=== PATIENT | female | born 2000 | race Caucasian/White ===

== ENCOUNTER 2020-02-01 09:57 | Emergency (ER) | payer MEDICAID ==
[~2020-02-01] VITALS: Ht 162.6 cm; Wt 77.1 kg
[~2020-02-01 09:57] MED LIST: DIPHENHIST50 MG PO; EPIPEN 2-P0.3 MG/0.3 IM; HYDROXYZINE HCL25 M1 PO; LATUDA20 MG PO; LEVOTHYROXIN0.025 MG PO; PREDNISONE50 MG PO
[2020-02-01 10:22] LABS: URINE BILIRUBIN NEGATIVE (Negative); URINE BLOOD NEGATIVE (Negative); URINE CLARITY CLEAR; URINE COLOR YELLOW; URINE GLUCOSE-RANDOM NEGATIVE (Negative); URINE KETONES NEGATIVE (Negative); URINE LEUKOCYTES-REFLEX 1+ (Negative); URINE NITRITE-REFLEX NEGATIVE (Negative); URINE PROTEIN NEGATIVE (Negative); URINE SPECIFIC GRAVITY <= 1.005 (1.005-1.030); URINE UROBILINOGEN 0.2 E.U./dl (0.2-1.0)
[2020-02-01 10:30] LABS: BACTERIA-REFLEX 1-9 Few /HPF (None Seen); CASTS None Seen /LPF (None Seen); MUCUS 0-3 Light strn/LPF (None Seen); SQUAMOUS 4-10 Moderate /LPF (0-3); URINE RBC 0-2 Rare /HPF (0-2); URINE WBC-REFLEX 0-5 Rare /HPF (0-5)
[2020-02-01] MEDS ORDERED: AZITHROMYCIN 2250 MG PO (10:30)
[2020-02-01] MEDS ORDERED: SUPRAX400 M1 PO (10:30)
[2020-02-01 10:31] LABS: CRYSTALS None Seen /LPF (None Seen)
[2020-02-01] MEDS ORDERED: DIFLUCAN150 MG PO (10:46)
[2020-02-01] MEDS ORDERED: FLAGYL500 M1 PO (10:46)
[2020-02-01 10:50] VITALS: BP 124/73
== END 2020-02-01 10:50 | disposition home or self-care (01) ==
LOC: M.ERS 09:57
PROVIDERS: Family Medicine
DX: R10.2 Pelvic and perineal pain (principal); Z20.2 Contact with and (suspected) exposure to infections with a predominantly sexual mode of transmission; Z91.010 Allergy to peanuts

== ENCOUNTER 2020-06-11 09:05 | Emergency (ER) | payer MEDICAID ==
[~2020-06-11] VITALS: Ht 157.5 cm; Wt 95.3 kg
[~2020-06-11 09:05] MED LIST changes: +AZITHROMYCIN 2250 MG PO; +DIFLUCAN150 MG PO; +FLAGYL500 M1 PO; +SUPRAX400 M1 PO
[2020-06-11 09:32] LABS: URINE BLOOD NEGATIVE (Negative); URINE CLARITY CLEAR; URINE COLOR YELLOW; URINE GLUCOSE-RANDOM NEGATIVE (Negative); URINE KETONES NEGATIVE (Negative); URINE LEUKOCYTES-REFLEX NEGATIVE (Negative); URINE NITRITE-REFLEX NEGATIVE (Negative); URINE PROTEIN NEGATIVE (Negative); URINE SPECIFIC GRAVITY >= 1.030 (1.005-1.030); URINE UROBILINOGEN 0.2 E.U./dl (0.2-1.0)
[2020-06-11 09:35] LABS: ICTOTEST (BILI CONFIRMATORY) Negative (Negative); URINE BILIRUBIN 2+ (Negative)
[2020-06-11] MEDS ORDERED: PYRIDIUM200 MG PO (10:08)
[2020-06-11] MEDS ORDERED: BACTRIM DS TAB1 EAC1 PO (10:08)
[2020-06-11 10:22] VITALS: BP 108/70
== END 2020-06-11 10:24 | disposition home or self-care (01) ==
LOC: M.ERS 09:05
PROVIDERS: Emergency Medicine Emergency Medical Services
DX: R10.84 Generalized abdominal pain (principal); R30.0 Dysuria; M54.5 Low back pain

== ENCOUNTER 2020-06-27 03:08 | Emergency (ER) | payer MEDICAID ==
[~2020-06-27] VITALS: Ht 157.5 cm; Wt 95.3 kg
[~2020-06-27 03:08] MED LIST changes: +BACTRIM DS TAB1 EAC1 PO; +PYRIDIUM200 MG PO
[2020-06-27 03:38] LABS: ABSOLUTE BASOPHILS 0.1 thou/uL (0.0-0.2); ABSOLUTE EOSINOPHILS 0.1 thou/uL (0.0-0.7); ABSOLUTE LYMPHOCYTES 2.7 thou/uL (0.8-5.3); ABSOLUTE MONOCYTES 0.7 thou/uL (0.0-1.2); ABSOLUTE NEUTROPHILS 3.4 thou/uL (1.6-8.1); BASOPHILS 0.8 %; EOSINOPHILS 2.1 %; HEMATOCRIT 37.3 % (37.0-47.0); HEMOGLOBIN 12.8 gm/dL (12.0-15.0); LYMPHOCYTES 38.8 %; MCH 29.8 pg (26.0-34.0); MCHC 34.2 g/dL (28.0-37.0); MCV 86.9 fL (80.0-100.0); MONOCYTES 9.7 %; MPV 7.6 fl. (7.2-11.1); NUCLEATED RBCS 0 /100WBC; PLATELET COUNT* 249 thou/uL (150-400); POLYS 48.6 %; RBC 4.29 mil/uL (4.20-5.00); RDW-CV 13.7 % (10.5-14.5); WBC 6.9 thou/uL (4.0-11.0)
[2020-06-27 03:44] LABS: URINE BILIRUBIN NEGATIVE (Negative); URINE BLOOD TRACE (Negative); URINE CLARITY CLEAR; URINE COLOR YELLOW; URINE GLUCOSE-RANDOM NEGATIVE (Negative); URINE KETONES NEGATIVE (Negative); URINE LEUKOCYTES-REFLEX NEGATIVE (Negative); URINE NITRITE-REFLEX NEGATIVE (Negative); URINE PROTEIN NEGATIVE (Negative); URINE SPECIFIC GRAVITY >= 1.030 (1.005-1.030); URINE UROBILINOGEN 0.2 E.U./dl (0.2-1.0)
[2020-06-27 03:47] LABS: CALCIUM 8.7 mg/dL (8.5-10.1); CREATININE 0.9 mg/dL (0.6-1.3)
[2020-06-27 03:52] LABS: ALBUMIN 3.8 g/dL (3.4-5.0); TOTAL BILIRUBIN 0.2 mg/dL (<0.1-1.0); TOTAL PROTEIN 6.8 g/dL (6.4-8.2)
[2020-06-27 04:28] VITALS: BP 104/54
== END 2020-06-27 04:29 | disposition home or self-care (01) ==
LOC: M.ERS 03:08
PROVIDERS: Family Medicine
DX: K59.00 Constipation, unspecified (principal); R10.84 Generalized abdominal pain; Z91.010 Allergy to peanuts

== ENCOUNTER 2020-09-14 09:44 | Emergency (ER) | payer MEDICAID ==
[~2020-09-14] VITALS: Ht 157.5 cm; Wt 95.3 kg
[2020-09-14 10:10] LABS: URINE BILIRUBIN NEGATIVE (Negative); URINE BLOOD NEGATIVE (Negative); URINE CLARITY CLEAR; URINE COLOR YELLOW; URINE GLUCOSE-RANDOM NEGATIVE (Negative); URINE KETONES NEGATIVE (Negative); URINE LEUKOCYTES-REFLEX NEGATIVE (Negative); URINE NITRITE-REFLEX NEGATIVE (Negative); URINE PROTEIN NEGATIVE (Negative); URINE UROBILINOGEN 0.2 E.U./dl (0.2-1.0)
[2020-09-14 10:18] LABS: AMP/METHAMP Negative (Negative); BARBITURATES Negative (Negative); BENZODIAZEPINES Negative (Negative); COCAINE Negative (Negative); METHADONE Negative (Negative); OPIATES Negative (Negative); PCP Negative (Negative); THC POSITIVE (Negative)
[2020-09-14] MEDS ORDERED: FLAGYL500 M1 PO (11:12)
[2020-09-14 11:20] VITALS: BP 126/72
== END 2020-09-14 11:20 | disposition home or self-care (01) ==
LOC: M.ERS 09:44
PROVIDERS: Personal Emergency Response Attendant
DX: N76.0 Acute vaginitis (principal); B96.89 Other specified bacterial agents as the cause of diseases classified elsewhere; Z91.010 Allergy to peanuts; Z79.899 Other long term (current) drug therapy

== ENCOUNTER 2021-01-18 10:55 | Emergency (ER) | payer MEDICAID ==
[~2021-01-18] VITALS: Ht 157.5 cm; Wt 90.7 kg
[2021-01-18 11:31] LABS: URINE BILIRUBIN NEGATIVE (Negative); URINE BLOOD NEGATIVE (Negative); URINE CLARITY CLEAR; URINE COLOR YELLOW; URINE GLUCOSE-RANDOM NEGATIVE (Negative); URINE KETONES NEGATIVE (Negative); URINE LEUKOCYTES-REFLEX NEGATIVE (Negative); URINE NITRITE-REFLEX NEGATIVE (Negative); URINE PROTEIN NEGATIVE (Negative); URINE SPECIFIC GRAVITY 1.015 (1.005-1.030); URINE UROBILINOGEN 0.2 E.U./dl (0.2-1.0)
[2021-01-18] MEDS ORDERED: DOXYCYCLINE 10100 MG PO (11:48)
[2021-01-18] MEDS ORDERED: FLAGYL500 M1 PO (12:03)
[2021-01-18 12:12] VITALS: BP 113/69
== END 2021-01-18 12:13 | disposition home or self-care (01) ==
LOC: M.ERS 10:55
PROVIDERS: Physician Assistant
DX: N76.0 Acute vaginitis (principal); B96.89 Other specified bacterial agents as the cause of diseases classified elsewhere; Z86.19 Personal history of other infectious and parasitic diseases; Z91.010 Allergy to peanuts; Z91.018 Allergy to other foods

== ENCOUNTER 2021-03-27 21:58 | Emergency (ER) | payer MEDICAID ==
[~2021-03-27] VITALS: Ht 157.5 cm; Wt 67.6 kg
[~2021-03-27 21:58] MED LIST changes: +DOXYCYCLINE 10100 MG PO
[2021-03-27 22:25] VITALS: BP 156/98
== END 2021-03-27 22:33 | disposition left against medical advice (07) ==
LOC: M.ERS 21:58
DX: Z53.21 Procedure and treatment not carried out due to patient leaving prior to being seen by health care provider (principal)